=== PATIENT | male | born 1960 | race Caucasian/White ===

== ENCOUNTER 2024-11-03 06:51 | Inpatient (IN) | payer BC ==
[~2024-11-03] VITALS: Ht 182.9 cm; Wt 105.6 kg
[2024-11-03] VITALS (24 sets, daily range): BP systolic 45–146; BP diastolic 18–75; PULSE 80–148; RESP 15–35; O2SAT 90–100
[2024-11-03] MEDS ORDERED: pantoprazole 40mg IV 80 MG in normal saline 100ml IV soln 100 ML IV ONE (06:55)
[2024-11-03] MEDS ORDERED: tranexamic acid inj. 1,000 MG in normal saline 100ml IV soln 90 ML IV ONE (06:55)
[2024-11-03] MEDS ORDERED: ipratropium/albuterol 3ml nebule NEB PRN (07:00)
[2024-11-03] MEDS: ipratropium/albuterol 3ml nebule ONE (07:09)
[2024-11-03] MEDS: tranexamic acid 1gm/0.7% sal. 100 ML IV ONE (07:12)
[2024-11-03] MEDS: octreotide inj. 500 MCG in normal saline 100ml IV soln 97.5 ML IV SCH (07:13)
[2024-11-03] MEDS: octreotide 100mcg/1 ml ampule IV ONE (07:13)
[2024-11-03] MEDS: pantoprazole 40 MG vial IV ONE (07:13)
[2024-11-03] MEDS: levetiracetam-NACL1000mg/100ml 100 ML IV SCH (07:14)
[2024-11-03 07:21] LABS: APTT 23 SECONDS (22-32); INR 1.6 INR
[2024-11-03 07:25] LABS: ALBUMIN 2.2 G/DL (3.4-5.0); ANION GAP 20 (8-16); BLOOD UREA NITROGEN 100 MG/DL (7-18); BUN/CREATININE RATIO 57.5 (10.0-20.0); CALCIUM 8.7 MG/DL (8.5-10.1); CHLORIDE 110 MMOL/L (99-107); CREATININE 1.74 MG/DL (0.60-1.10); ETHANOL < 10 MG/DL (<10); GLUCOSE 145 MG/DL (70-104); LIPASE 63 U/L (16-77); MAGNESIUM 2.5 MG/DL (1.5-2.4); POTASSIUM 4.4 MMOL/L (3.5-5.1); SODIUM 143 MMOL/L (135-145); eCRCL 48 ML/MIN; eGFR 40 ML/MIN
[2024-11-03 07:31] LABS: TOTAL CARBON DIOXIDE 13.3 MMOL/L (24-32)
[2024-11-03 07:35] LABS: BASOPHILS % (AUTO) 0.1 % (0-1); EOSINOPHILS % (AUTO) 0 % (0-6); HEMATOCRIT 28.3 % (42.0-52.0); HEMOGLOBIN 9.4 g/dl (14.0-17.9); LYMPHOCYTES # (AUTO) 1.1 X10'3 (1.1-4.8); LYMPHOCYTES % (AUTO) 5.7 % (21-51); MEAN CORPUSCULAR HEMOGLOBIN 35.3 PG (27.0-31.0); MEAN CORPUSCULAR HGB CONC 33.3 g/dL (33.0-36.5); MEAN CORPUSCULAR VOLUME 106.1 FL (78-98); MEAN PLATELET VOLUME 9.6 FL (7.4-10.4); MONOCYTES # (AUTO) 1.8 X10'3 (0-0.9); MONOCYTES % (AUTO) 9.3 % (2-12); NEUTROPHILS # (AUTO) 16.9 X10'3 (1.8-7.7); NEUTROPHILS % (AUTO) 84.9 % (42-75); PLATELET COUNT 196 X10'3 (140-440); RED BLOOD COUNT 2.67 X10'6 (4.70-6.10); RED CELL DISTRIBUTION WIDTH 13.6 % (11.5-14.5); WHITE BLOOD COUNT 19.9 X10'3 (4.5-11.0)
[2024-11-03] MEDS: succinylcholine 20mg/ml inj IV ONE ×2 (07:35→11:15)
[2024-11-03] MEDS: midazolam 100mg in NS 100 ML INFUSION IV PRN (07:37)
[2024-11-03] MEDS ORDERED: magnesium hydroxide 30ml (MOM) UD suspension PO PRN (07:45)
[2024-11-03] MEDS ORDERED: acetaminophen 325mg tablet PO PRN ×2 (07:45)
[2024-11-03] MEDS ORDERED: ondansetron/PF 4mg/2ml inj IV PRN (07:45)
[2024-11-03] MEDS: LidoCAINE 2% Topical Jelly 11mL syringe (UROJET) TOP ONE (07:45)
[2024-11-03] MEDS ORDERED: morphine 4 MG/ML inj SYRINge IV PRN (07:45)
[2024-11-03] MEDS ORDERED: morphine 2 MG/ML inj. syringe IV PRN (07:45)
[2024-11-03] MEDS ORDERED: epiNEPHrine 0.1mg/ml 10ml syringe ONE ×2 (08:00→13:13)
[2024-11-03] MEDS ORDERED: atropine 0.1mg/ml 10ml syringe ONE (08:00)
[2024-11-03] MEDS: COMMUNICATION ORDER 1 EA MISC MC ONE ×2 (08:05→08:11)
[2024-11-03] MEDS: LORazepam 2 mg/ml vial IV ONE (08:14)
[2024-11-03 08:19] LABS: BILIRUBIN,URINE NEGATIVE (Neg); CLARITY,URINE CLOUDY (Clear); COLOR,URINE YELLOW (Yellow); GLUCOSE, URINE NEGATIVE (Neg); KETONES,URINE NEGATIVE (Neg); LEUKOCYTE ESTERASE ,URINE NEGATIVE (Neg); NITRITES, URINE NEGATIVE (Neg); OCCULT BLOOD,URINE TRACE-INTACT (Neg); PH,URINE 6.5 (4.8-8.0); PROTEIN,URINE 30 mg/dl (Neg); UA COLLECTION TYPE FOLEY CATH; UROBILINOGEN,URINE 0.2 E.U/dL (0.2-1.0)
[2024-11-03 08:26] LABS: BACTERIA,URINE NONE SEEN /HPF (Neg); RBC,URINE 0-2 /HPF (0-2); SQUAMOUS EPITHELIAL CELL,UR NONE SEEN /LPF (FEW); WBC,URINE NONE SEEN /HPF (0-4)
[2024-11-03 08:27] LABS: AMORPHOUS URATES 4+
[2024-11-03 08:29] LABS: URINE AMPHETAMINE SCREEN NEGATIVE (Neg); URINE BARBITUATE SCREEN NEGATIVE (Neg); URINE BENZODIAZEPINES SCREEN NEGATIVE (Neg); URINE CANNABINOID SCREEN NEGATIVE (Neg); URINE COCAINE SCREEN NEGATIVE (Neg); URINE METHADONE SCREEN NEGATIVE (Neg); URINE OPIATE SCREEN POSITIVE (Neg); URINE PHENCYCLIDINE SCREEN NEGATIVE (Neg)
[2024-11-03 08:30] LABS: ABG BASE EXCESS -16.6 mmol/L (-2.0-3.0); ABG HCO3 9.3 mmol/L (21.0-28.0); ABG OXYGEN SATURATION 97.1 % (94.0-98.0); ABG PH (T) 7.239 (7.350-7.450); ALLEN'S TEST POSITIVE; FCOHb 0.2 % (0.5-1.5); FHHb 2.9 % (0.0-5.0); FO2Hb 96.9 % (94.0-98.0); MODE VENT - AC; PATIENT TEMPERATURE 35.8; PEEP 5 cm H2O; RESPIRATORY RATE 14 b/min; TIDAL VOLUME 550 mL; TOTAL HEMOGLOBIN 10.6 G/dl (13.5-17.5)
[2024-11-03] MEDS: normal saline 1000ml 1,000 ML IV SCH (10:01)
[2024-11-03] MEDS: thiamine 100mg/ml 2ml inj. IV ONE (10:01)
[2024-11-03 10:06] LABS: ALANINE AMINOTRANSFERASE 411 U/L (12-78); ALBUMIN/GLOBULIN RATIO 0.8 (1.1-1.5); ALKALINE PHOSPHATASE 105 IU/L (46-116); ASPARTATE AMINO TRANSFERASE 349 U/L (10-37); BILIRUBIN,DIRECT 0.7 MG/DL (0-0.3); BILIRUBIN,TOTAL 1.5 MG/DL (0.1-1.0); TOTAL PROTEIN 4.8 G/DL (6.4-8.2)
[2024-11-03 10:08] LABS: HEMATOCRIT 41.4 % (42.0-52.0); HEMOGLOBIN 13.7 g/dl (14.0-17.9); MEAN CORPUSCULAR HEMOGLOBIN 32.3 PG (27.0-31.0); MEAN CORPUSCULAR HGB CONC 33.1 g/dL (33.0-36.5); MEAN CORPUSCULAR VOLUME 97.6 FL (78-98); MEAN PLATELET VOLUME 9.6 FL (7.4-10.4); PLATELET COUNT 121 X10'3 (140-440); RED BLOOD COUNT 4.24 X10'6 (4.70-6.10); RED CELL DISTRIBUTION WIDTH 16.9 % (11.5-14.5); WHITE BLOOD COUNT 23.8 X10'3 (4.5-11.0)
[2024-11-03] MEDS ORDERED: calcium gluconate inj. 2 GM in normal saline 100ml IV soln 100 ML IV ONE ×2 (10:15→16:20)
[2024-11-03] MEDS: folic acid 1mg/0.2ml inj IV ONE (10:26)
[2024-11-03] MEDS: sodium bicarbonate 1meq/ml inj 150 ML in dextrose 5%-water 1,000 ML IV SCH (10:26)
[2024-11-03] MEDS: CALCIUM GLUC 1gm/50ml NACL,iso 50 ML IV ONE ×2 (10:44→11:36)
[2024-11-03] MEDS: etomidate 2mg/ml inj. IV ONE (11:15)
[2024-11-03 11:39] LABS: ISTAT CREATININE 1.3 mg/dL (0.8-1.3); ISTAT HGB 8.8 g/dl (14.0-17.9); ISTAT IONIZED CALCIUM 1.27 mmol/L (1.03-1.32); ISTAT K 5.3 mmol/L (3.5-5.1); POC BUN/CREATININE RATIO 89.2 (5.4-32.0)
[2024-11-03] MEDS: NORepinephrine 8mg/ 250ml NS 250 ML IV PRN (12:47)
[2024-11-03] MEDS: FENTANYL-0.9 % NACL/PF 100 ML IV SCH (13:12)
[2024-11-03] MEDS: propofol 1000mg/100ml bottle 100 ML IV SCH (13:13)
[2024-11-03 15:59] LABS: HEMOGLOBIN 14.1 g/dl (14.0-17.9); MEAN CORPUSCULAR VOLUME 100.1 FL (78-98); MEAN PLATELET VOLUME 9.7 FL (7.4-10.4); PLATELET COUNT 126 X10'3 (140-440); RED CELL DISTRIBUTION WIDTH 18.8 % (11.5-14.5)
[2024-11-03 16:08] LABS: WHITE BLOOD COUNT 32.1 X10'3 (4.5-11.0)
[2024-11-03] MEDS: CALCIUM GLUC 1gm/50ml NACL,iso 50 ML IV SCH (16:50)
[2024-11-03] MEDS: normal saline 1000ml 1,000 ML IV ONE (17:05)
[2024-11-03] MEDS: epiNEPHrine inj 5 MG in normal saline 250ml IV soln 245 ML IV SCH (17:05)
[2024-11-03] MEDS: acetaminophen 1,000mg/100ml IV 100 ML IV STA (17:12)
[2024-11-03] MEDS: CefTRIAXone/D5W-Rocephin 1gm 50 ML IV SCH (17:47)
[2024-11-03] MEDS ORDERED: vasopressin inj. 40 UNIT in dextrose 5%-water 50ml 38 ML IV SCH (17:55)
[2024-11-03] MEDS: vasopressin inj. 40 UNIT in normal saline 50ml IV soln 38 ML IV SCH (18:05)
[2024-11-03] MEDS: calcium chloride 100 MG/1 ML inj IV STA (18:06)
[2024-11-03 18:30] LABS: PLATELET COUNT 107 X10'3 (140-440)
[2024-11-03 18:58] LABS: BASOPHILS # (AUTO) 0.1 X10'3 (0-0.2); BASOPHILS % (AUTO) 0.2 % (0-1); HEMOGLOBIN 9.9 g/dl (14.0-17.9)
[2024-11-03 19:00] LABS: EOSINOPHILS % (AUTO) 0.1 % (0-6); HEMATOCRIT 30.8 % (42.0-52.0); LYMPHOCYTES # (AUTO) 1.4 X10'3 (1.1-4.8); LYMPHOCYTES % (AUTO) 4.4 % (21-51); MEAN CORPUSCULAR HEMOGLOBIN 32.3 PG (27.0-31.0); MEAN CORPUSCULAR HGB CONC 32.3 g/dL (33.0-36.5); MEAN PLATELET VOLUME 10.3 FL (7.4-10.4); MONOCYTES # (AUTO) 3.3 X10'3 (0-0.9); MONOCYTES % (AUTO) 9.9 % (2-12); NEUTROPHILS # (AUTO) 28.2 X10'3 (1.8-7.7); NEUTROPHILS % (AUTO) 85.4 % (42-75); PLATELET COUNT 111 X10'3 (140-440); RED BLOOD COUNT 3.08 X10'6 (4.70-6.10); RED CELL DISTRIBUTION WIDTH 18.5 % (11.5-14.5)
[2024-11-03 19:15] LABS: APTT 37 SECONDS (22-32); D-DIMER 10.85 MG/L FEU (0-0.50); FIBRINOGEN 166 MG/DL (177-424); INR 1.8 INR; PROTHROMBIN TIME 17.7 SECONDS (9.0-12.0)
[2024-11-03 19:17] LABS: ALBUMIN 1.8 G/DL (3.4-5.0); ALBUMIN/GLOBULIN RATIO 0.9 (1.1-1.5); ALKALINE PHOSPHATASE 85 IU/L (46-116); ANION GAP 21 (8-16); BILIRUBIN,TOTAL 3.8 MG/DL (0.1-1.0); BLOOD UREA NITROGEN 94 MG/DL (7-18); BUN/CREATININE RATIO 33.8 (10.0-20.0); CALCIUM 8.6 MG/DL (8.5-10.1); CHLORIDE 113 MMOL/L (99-107); CREATININE 2.78 MG/DL (0.60-1.10); GLUCOSE 90 MG/DL (70-104); SODIUM 146 MMOL/L (135-145); TOTAL PROTEIN 3.9 G/DL (6.4-8.2); eCRCL 30 ML/MIN; eGFR 23 ML/MIN
[2024-11-03 19:28] LABS: ANISOCYTOSIS 2+; PLATELET ESTIMATE DECREASED; POLYCHROMASIA FEW; TOTAL CELLS COUNTED 100
[2024-11-03 19:35] LABS: ALANINE AMINOTRANSFERASE 3623 U/L (12-78); ASPARTATE AMINO TRANSFERASE 3839 U/L (10-37)
[2024-11-03 19:41] LABS: ABG BASE EXCESS -17.5 mmol/L (-2.0-3.0); ABG HCO3 13.3 mmol/L (21.0-28.0); ABG PCO2 (T) 59.8 mmHg (35.0-48.0); ABG PH (T) 6.972 (7.350-7.450); ALLEN'S TEST POSITIVE; FCOHb 0.3 % (0.5-1.5); FMetHb 0.2 % (0.0-1.5); FO2Hb 96.5 % (94.0-98.0); MODE VENT - AC PRVC; PEEP 5 cm H2O; RESPIRATORY RATE 14 b/min; TIDAL VOLUME 550 mL; TOTAL HEMOGLOBIN 8.9 G/dl (13.5-17.5)
[2024-11-03 19:52] LABS: POTASSIUM 7.2 MMOL/L (3.5-5.1)
[2024-11-03 19:53] LABS: TOTAL CARBON DIOXIDE 12.1 MMOL/L (24-32)
[2024-11-03] MEDS ORDERED: etomidate 2mg/ml inj. ONE (20:00)
[2024-11-03] MEDS ORDERED: sodium bicarbonate (8.4%) 1 mEq/ml syringe ONE (20:00)
[2024-11-03] MEDS ORDERED: acetaminophen 1,000mg/100ml IV 100 ML IV SCH (20:00)
[2024-11-03] MEDS: dexamethasone sod phosphate 10mg/ml inj IV STA (20:58)
[2024-11-03 21:03] LABS: ABG BASE EXCESS -16.7 mmol/L (-2.0-3.0); ABG HCO3 11.3 mmol/L (21.0-28.0); ABG OXYGEN SATURATION 96.9 % (94.0-98.0); ABG PCO2 (T) 34.5 mmHg (35.0-48.0); ABG PO2 (T) 131.9 mmHg (83.0-108.0); ALLEN'S TEST POSITIVE; FCOHb 0.3 % (0.5-1.5); FHHb 3.1 % (0.0-5.0); FMetHb 0.2 % (0.0-1.5); FO2Hb 96.4 % (94.0-98.0); MODE VENT - AC PRVC; PATIENT TEMPERATURE 36.6; PEEP 5 cm H2O; RESPIRATORY RATE 18 b/min; TIDAL VOLUME 550 mL; TOTAL HEMOGLOBIN 7.7 G/dl (13.5-17.5)
[2024-11-03] MEDS: NORepinephrine 32 MG in normal saline 250ml IV soln 218 ML IV SCH (21:13)
[2024-11-03] MEDS: epiNEPHrine 10 MG in NS 250ml IV SOLUTION IV SCH (21:15)
[2024-11-03] MEDS: ringers solution, lacted 1,000 ML IV ONE ×2 (22:11)
[2024-11-03] MEDS: dextrose 50%-water 50ml dispensing syringe IV ONE ×2 (22:17→22:23)
[2024-11-03] MEDS: calcium chloride 100 MG/1 ML inj IV ONE (22:18)
[2024-11-03] MEDS: insulin regular, human 10 units/0.1 ml syringe IV ONE (22:18)
[2024-11-03 22:19] LABS: BASOPHILS # (AUTO) 0.2 X10'3 (0-0.2); BASOPHILS % (AUTO) 0.7 % (0-1); EOSINOPHILS % (AUTO) 0.2 % (0-6); HEMATOCRIT 25.6 % (42.0-52.0); HEMOGLOBIN 8.2 g/dl (14.0-17.9); LYMPHOCYTES # (AUTO) 1.2 X10'3 (1.1-4.8); LYMPHOCYTES % (AUTO) 4.8 % (21-51); MEAN CORPUSCULAR HEMOGLOBIN 31.9 PG (27.0-31.0); MEAN CORPUSCULAR HGB CONC 32.1 g/dL (33.0-36.5); MEAN CORPUSCULAR VOLUME 99.5 FL (78-98); MEAN PLATELET VOLUME 9.8 FL (7.4-10.4); MONOCYTES # (AUTO) 2.7 X10'3 (0-0.9); MONOCYTES % (AUTO) 11.5 % (2-12); NEUTROPHILS # (AUTO) 19.7 X10'3 (1.8-7.7); NEUTROPHILS % (AUTO) 82.8 % (42-75); PLATELET COUNT 91 X10'3 (140-440); RED BLOOD COUNT 2.57 X10'6 (4.70-6.10); RED CELL DISTRIBUTION WIDTH 18.8 % (11.5-14.5); WHITE BLOOD COUNT 23.7 X10'3 (4.5-11.0)
[2024-11-03 22:28] LABS: INR 2.4 INR; PROTHROMBIN TIME 23.4 SECONDS (9.0-12.0)
[2024-11-03 22:38] LABS: ALBUMIN 1.4 G/DL (3.4-5.0); ALBUMIN/GLOBULIN RATIO 0.8 (1.1-1.5); ALKALINE PHOSPHATASE 81 IU/L (46-116); ANION GAP 27 (8-16); BILIRUBIN,TOTAL 3.3 MG/DL (0.1-1.0); BLOOD UREA NITROGEN 91 MG/DL (7-18); BUN/CREATININE RATIO 27.4 (10.0-20.0); CALCIUM 7.6 MG/DL (8.5-10.1); CHLORIDE 113 MMOL/L (99-107); CREATININE 3.32 MG/DL (0.60-1.10); MAGNESIUM 2.7 MG/DL (1.5-2.4); PHOSPHORUS 8.9 MG/DL (2.3-4.5); SODIUM 153 MMOL/L (135-145); TOTAL PROTEIN 3.1 G/DL (6.4-8.2); eCRCL 25 ML/MIN; eGFR 19 ML/MIN
[2024-11-03] MEDS: albuterol 2.5 MG/3 ML nebule CONTNEB PRN (23:10)
[2024-11-03 23:13] LABS: ALANINE AMINOTRANSFERASE 5029 U/L (12-78); ASPARTATE AMINO TRANSFERASE 5750 U/L (10-37)
[2024-11-03 23:14] LABS: GLUCOSE 31 MG/DL (70-104); POTASSIUM 6.6 MMOL/L (3.5-5.1)
[2024-11-03 23:15] LABS: TOTAL CARBON DIOXIDE 12.9 MMOL/L (24-32)
[2024-11-03] MEDS: hydrocortisone sod succ/PF 100mg/2ml inj. IV SCH (23:20)
[2024-11-03] MEDS: albumin (Human) 5% 250ml 250 ML IV ONE (23:21)
[2024-11-04] VITALS (24 sets, daily range): BP systolic 66–100; BP diastolic 19–40; PULSE 67–100; RESP 20–29; TEMP 97–97.1; O2SAT 80–100
[2024-11-04] MEDS: albumin (Human) 5% 250ml 250 ML IV SCH (00:02)
[2024-11-04] MEDS ORDERED: LACTULOSE RC PRN (01:45)
[2024-11-04 01:57] LABS: ABG BASE EXCESS -18.6 mmol/L (-2.0-3.0); ABG HCO3 10.1 mmol/L (21.0-28.0); ABG OXYGEN SATURATION 88.7 % (94.0-98.0); ABG PCO2 (T) 34.9 mmHg (35.0-48.0); ABG PH (T) 7.075 (7.350-7.450); ABG PO2 (T) 74.3 mmHg (83.0-108.0); FCOHb 0.8 % (0.5-1.5); FHHb 11.2 % (0.0-5.0); MODE CMV PRVC IT 0.9; PATIENT TEMPERATURE 36.5; PEEP 5 cm H2O; RESPIRATORY RATE 20 b/min; TIDAL VOLUME 600 mL; TOTAL HEMOGLOBIN 7.3 G/dl (13.5-17.5)
[2024-11-04 02:02] LABS: EOSINOPHILS % (AUTO) 0.1 % (0-6); MEAN CORPUSCULAR HGB CONC 31.1 g/dL (33.0-36.5); WHITE BLOOD COUNT 21.1 X10'3 (4.5-11.0)
[2024-11-04 02:03] LABS: BASOPHILS % (AUTO) 0.2 % (0-1); HEMATOCRIT 22.2 % (42.0-52.0); LYMPHOCYTES % (AUTO) 4.8 % (21-51); MEAN CORPUSCULAR HEMOGLOBIN 31.4 PG (27.0-31.0); MEAN CORPUSCULAR VOLUME 101.1 FL (78-98); MEAN PLATELET VOLUME 9.9 FL (7.4-10.4); MONOCYTES # (AUTO) 3.4 X10'3 (0-0.9); MONOCYTES % (AUTO) 16.1 % (2-12); NEUTROPHILS # (AUTO) 16.6 X10'3 (1.8-7.7); NEUTROPHILS % (AUTO) 78.8 % (42-75); PLATELET COUNT 85 X10'3 (140-440); RED CELL DISTRIBUTION WIDTH 19.2 % (11.5-14.5)
[2024-11-04] MEDS: dextrose 50%-water 50ml dispensing syringe IV ONE ×2 (02:07→04:02)
[2024-11-04 02:10] LABS: HEMOGLOBIN 6.9 g/dl (14.0-17.9)
[2024-11-04 02:27] LABS: NUCLEATED RED BLOOD CELLS 1 /100WBC (0-0); TOTAL CELLS COUNTED 100
[2024-11-04 02:28] LABS: ALBUMIN 1.5 G/DL (3.4-5.0); ALKALINE PHOSPHATASE 80 IU/L (46-116); ANION GAP 30 (8-16); BILIRUBIN,TOTAL 3.2 MG/DL (0.1-1.0); BLOOD UREA NITROGEN 89 MG/DL (7-18); BUN/CREATININE RATIO 24.8 (10.0-20.0); CHLORIDE 113 MMOL/L (99-107); CREATININE 3.59 MG/DL (0.60-1.10); GLUCOSE 76 MG/DL (70-104); MAGNESIUM 3.1 MG/DL (1.5-2.4); PHOSPHORUS 8.5 MG/DL (2.3-4.5); eCRCL 23 ML/MIN; eGFR 17 ML/MIN
[2024-11-04 03:03] LABS: CALCIUM 8.4 MG/DL (8.5-10.1)
[2024-11-04 03:07] LABS: POTASSIUM 7.2 MMOL/L (3.5-5.1); SODIUM 155 MMOL/L (135-145); TOTAL CARBON DIOXIDE 12.4 MMOL/L (24-32)
[2024-11-04 03:08] LABS: ALANINE AMINOTRANSFERASE 5294 U/L (12-78); ASPARTATE AMINO TRANSFERASE 6492 U/L (10-37)
[2024-11-04] MEDS ORDERED: dextrose 50%-water 50ml dispensing syringe IV PRN ×2 (03:20)
[2024-11-04] MEDS: calcium chloride 100 MG/1 ML inj IV ONE (04:02)
[2024-11-04] MEDS: insulin regular, human 10 units/0.1 ml syringe IV ONE (04:06)
[2024-11-04 07:36] LABS: HEMATOCRIT 23.5 % (42.0-52.0); HEMOGLOBIN 7.3 g/dl (14.0-17.9); MEAN CORPUSCULAR HEMOGLOBIN 31.3 PG (27.0-31.0); MEAN CORPUSCULAR HGB CONC 31.2 g/dL (33.0-36.5); MEAN CORPUSCULAR VOLUME 100.5 FL (78-98); MEAN PLATELET VOLUME 10.2 FL (7.4-10.4); PLATELET COUNT 80 X10'3 (140-440); RED BLOOD COUNT 2.34 X10'6 (4.70-6.10); RED CELL DISTRIBUTION WIDTH 19.2 % (11.5-14.5)
[2024-11-04] MEDS: sodium bicarbonate (8.4%) 1 mEq/ml syringe IV ONE (07:45)
[2024-11-04 07:59] LABS: ALBUMIN 1.7 G/DL (3.4-5.0); ANION GAP 29 (8-16); BLOOD UREA NITROGEN 90 MG/DL (7-18); BUN/CREATININE RATIO 22.2 (10.0-20.0); CALCIUM 8.2 MG/DL (8.5-10.1); CHLORIDE 112 MMOL/L (99-107); CREATININE 4.06 MG/DL (0.60-1.10); GLUCOSE 103 MG/DL (70-104); MAGNESIUM 3.1 MG/DL (1.5-2.4); SODIUM 151 MMOL/L (135-145); eCRCL 20 ML/MIN; eGFR 15 ML/MIN
[2024-11-04 08:02] LABS: PHOSPHORUS 9.1 MG/DL (2.3-4.5)
[2024-11-04 08:31] LABS: POTASSIUM 8.5 MMOL/L (3.5-5.1)
[2024-11-04 08:32] LABS: TOTAL CARBON DIOXIDE 10.2 MMOL/L (24-32)
[2024-11-04 08:36] LABS: AMMONIA > 700 UMOL/L (11-32)
[2024-11-04 08:37] LABS: LACTIC SEPSIS 31.8 MMOL/L (0.4-2.0)
== END 2024-11-04 14:00 | DRG 871 ==
LOC: ER 06:52 → ED HOLD 07:43 → CICU 2S 21:40
PROVIDERS: ADMIT Internal Medicine Critical Care Medicine; ATTEND Internal Medicine Critical Care Medicine
PROC: 30233L1 Transfusion of Nonautologous Fresh Plasma into Peripheral Vein, Percutaneous Approach (ICD-10-PCS; principal; 2024-11-03)
PROC: 30233N1 Transfusion of Nonautologous Red Blood Cells into Peripheral Vein, Percutaneous Approach (ICD-10-PCS; 2024-11-03)
PROC: 06L38CZ Occlusion of Esophageal Vein with Extraluminal Device, Via Natural or Artificial Opening Endoscopic (ICD-10-PCS; 2024-11-03)
PROC: 5A1935Z Respiratory Ventilation, Less than 24 Consecutive Hours (ICD-10-PCS; 2024-11-03)
PROC: 0BH17EZ Insertion of Endotracheal Airway into Trachea, Via Natural or Artificial Opening (ICD-10-PCS; 2024-11-03)
PROC: 5A12012 Performance of Cardiac Output, Single, Manual (ICD-10-PCS; 2024-11-03)
DX: A41.9 Sepsis, unspecified organism (principal); I85.11 Secondary esophageal varices with bleeding; J96.00 Acute respiratory failure, unspecified whether with hypoxia or hypercapnia; K72.00 Acute and subacute hepatic failure without coma; D62 Acute posthemorrhagic anemia; E87.20 Acidosis, unspecified; N17.9 Acute kidney failure, unspecified; R57.9 Shock, unspecified; K76.6 Portal hypertension; D69.6 Thrombocytopenia, unspecified; E11.9 Type 2 diabetes mellitus without complications; I46.9 Cardiac arrest, cause unspecified; E78.5 Hyperlipidemia, unspecified; E87.5 Hyperkalemia; F10.10 Alcohol abuse, uncomplicated; I10 Essential (primary) hypertension; Z66 Do not resuscitate; K74.60 Unspecified cirrhosis of liver; K76.82 Hepatic encephalopathy; R56.9 Unspecified convulsions; K31.89 Other diseases of stomach and duodenum
CPT/HCPCS: 36415; 36430; 36600; 43244; 71045; 80047; 80048; 80053; 80076; 80305; 80320; 81001; 82140; 82330; 82803; 82948; 83605; 83690; 83735; 84100; 84145; 84484; 85007; 85018; 85025; 85027; 85379; 85384; 85610; 85730; 86885; 86900; 86901; 86920; 87070; 87081; 92950; 93005; 93306; 94002; 94003; 94640; 94760; 94799; 99152; 99291; 99292; A6213; A7015; C1751; C1758; G0378; J0131; J0171; J0330; J0461; J0610; J0696; J1100; J1720; J1815; J1953; J2060; J2354; J2470; J2704; J3010; J3411; J3475; J3490; J7030; J7040; J7050; J7070; J7120; P9012; P9016; P9045; P9059